=== PATIENT | male | born 1990 | race Two or more races ===

== ENCOUNTER 2022-05-26 10:03 | Emergency (ER) | payer OTHER ==
[~2022-05-26] VITALS: Ht 175.3 cm; Wt 64.9 kg
== END 2022-05-26 13:29 | disposition home or self-care (01) ==
LOC: ER 10:03
DX: S49.91XA Unspecified injury of right shoulder and upper arm, initial encounter (principal); X50.9XXA Other and unspecified overexertion or strenuous movements or postures, initial encounter; Y93.79 Activity, other specified sports and athletics; Y92.9 Unspecified place or not applicable; Z91.011 Allergy to milk products